=== PATIENT | male | born 1975 | race Caucasian/White ===

== ENCOUNTER 2017-03-04 18:57 | Emergency (ER) | payer SELFPAY ==
[~2017-03-04] VITALS: Ht 185.4 cm; Wt 103.4 kg
[2017-03-04 19:02] VITALS: BP 133/103
== END 2017-03-04 19:43 | disposition left against medical advice (07) ==
LOC: EME 18:57
DX: Z04.1 Encounter for examination and observation following transport accident (principal); Z53.21 Procedure and treatment not carried out due to patient leaving prior to being seen by health care provider